=== PATIENT | female | born 1990 | race Caucasian/White ===

== ENCOUNTER 2025-03-13 14:07 | Emergency (ER) | payer MEDICAID, SELFPAY ==
[2025-03-13 14:07] VITALS: PULSE 90; RESP 22
[2025-03-13 14:31] VITALS: BP 116/67; PULSE 84; RESP 20; TEMP 37; O2SAT 100
--- NOTE | 2025-03-13 14:32 | XR_ITS ---
Examination: CT abdomen and pelvis without contrast. Coronal 3-D reconstructions. Sagittal 2-D reconstructions. Date and time of exam:March 13, 2025 1531 hours Comparison January 12, 2023 INDICATIONS: Epigastric pain abdominal pain vomiting and nausea beginning 3 days ago, history mild right hydronephrosis 3 mm distal right ureteral calculus on CT study January 12, 2023 CTDI: vol (mGy): 10.8 DLP: (mGycm): 612 Technique: Axial images of the abdomen have been obtained, 3 mm slice thickness Intravenous contrast material has not been administered. Low dose protocols were performed. One or more of the following dose reduction techniques were used; automated exposure control, adjustment of the mA and/or KV according to patient size, use of iterative reconstruction technique. Findings: No focal liver or splenic lesion Absent gallbladder No pancreatic or adrenal mass 1 mm nonobstructing left renal calculus 2. Tiny right renal calculi each 1 mm No ureteral calculi No bowel obstruction Normal appendix Enlarged fundus of uterus No adnexal mass No bladder mass or bladder calculi The osseous structures are intact IMPRESSION: Tiny bilateral nonobstructing renal calculi, no hydronephrosis or ureteral calculi Normal appendix No bladder mass or bladder calculi Enlarged fundus of uterus, consider pelvic sonography follow-up
--- NOTE | 2025-03-13 14:33 | PD.EDRME ---
Rapid Medical Screening Exam RME Arrival date/time: 03/13/25 14:07 34-year-old female presents emergency department due to complaint of abdominal pain Chief Complaint: Abdominal Pain Vital signs: Vital Signs Temperature 98.6 F 03/13/25 14:31 Pulse Rate 84 03/13/25 14:31 Respiratory Rate 20 03/13/25 14:31 Blood Pressure 116/67 03/13/25 14:31 Pulse Oximetry (%) 100 03/13/25 14:31 Oxygen Delivery Method Room Air 03/13/25 14:31
[2025-03-13] MEDS: ACETAMINOPHEN 500 MG TABLET 1000 MG PO (14:40)
[2025-03-13] MEDS: METOCLOPRAMIDE 5 MG TABLET 10 MG PO (14:40)
[2025-03-13 15:07] LABS: Collection Type, Urine Clean Catch
[2025-03-13 15:15] LABS: HCG Qualitative,Urine Negative
[2025-03-13 15:17] LABS: Bilirubin,Urine Negative (Negative); Blood,Urine 2+ (Negative); Clarity,Urine Clear (Clear/Hazy); Color,Urine Colorless (Lt Yel-Yel); Culture Indicated,Urine Not Indicated; Glucose, Urine Negative (Negative); Ketones,Urine Negative (Negative); Leukocyte Esterase,Urine Negative (Negative); Nitrite,Urine Negative (Negative); PH,Urine 6.5 (5.0-7.0); Protein,Urine Negative (Neg - Trace); RBC,Urine < 1 /hpf (0-3); Specific Gravity,Urine 1.005 (1.001-1.035); Squamous Epithelial Cell,Urine 2 /hpf (0-5); Urobilinogen,Urine Negative mg/dL (0.0-1.0); WBC,Urine < 1 /hpf (0-5)
[2025-03-13 15:27] LABS: Basophils % (Auto) 0 % (0-2.5); Eosinophils # (Auto) 0.1 Thou/mm3 (0.0-0.5); Eosinophils % (Auto) 1 % (0-10); Hematocrit 38.3 % (36.0-46.0); Hemoglobin 12.4 g/dL (12.0-16.0); Immature Granulocytes % (Auto) 0 % (0-0); Immature Granulocytes Auto 0.02 Thou/mm3 (0.00-0.00); Lymphocytes # (Auto) 1.4 Thou/mm3 (1.0-4.8); Lymphocytes % (Auto) 19 % (10-50); Mean Corpuscular HGB Conc 32.4 g/dl (31.0-37.0); Mean Corpuscular Hemoglobin 25.9 pg (25.0-35.0); Mean Corpuscular Volume 80 fL (80-100); Monocytes # (Auto) 0.7 Thou/mm3 (0.0-0.8); Monocytes % (Auto) 9 % (0-12); Neutrophils # (Auto) 5.1 Thou/mm3 (1.8-7.7); Neutrophils % (Auto) 71 % (37-80); Nucleated Red Blood Cell % 0 /100 WBC (0); Platelet Count 336 Thou/mm3 (140-440); RDW Standard Deviation 40.8 fL (36.4-46.3); Red Blood Count 4.79 Miln/mm3 (4.00-5.20); White Blood Count 7.2 Thou/mm3 (3.6-11.0)
[2025-03-13 15:39] LABS: Alanine Aminotransferase 19 U/L (10-49); Albumin, Serum 4.5 gm/dL (3.5-5.0); Alkaline Phosphatase 89 U/L (46-116); Anion Gap 9 (7-16); Aspartate Amino Transferase 22 U/L (0-34); BUN/Creatinine Ratio 9 Ratio (12-20); Bilirubin,Total 0.6 mg/dL (0.3-1.2); Blood Urea Nitrogen 7 mg/dL (9-23); Calcium 8.6 mg/dL (8.3-10.6); Calcium (Corrected) 8.6 mg/dL (8.5-10.1); Carbon Dioxide 24.6 mMol/L (20.0-31.0); Chloride 107 mMol/L (98-107); Creatinine (Component) 0.8 mg/dL (0.6-1.3); Globulin 2.2 gm/dL (2.3-3.5); Glucose 92 mg/dL (74-106); Lipase 32 U/L (12-53); Osmolality,Calculated 279 (275-295); Potassium 3.8 mMol/L (3.4-5.1); Sodium 141 mMol/L (136-145); Total Protein 6.7 gm/dL (5.7-8.2); eGFR > 60 See Note
--- NOTE | 2025-03-13 16:06 | PD.EDABDPN ---
ED Abdominal Pain RME/HPI General Chief Complaint: Abdominal Pain Stated complaint: left and right up ab pain x3 days Time seen by provider: 03/13/25 16:09 Arrival date/time: 03/13/25 14:07 34-year-old female presents to the emergency department today for complaint of upper abdominal pain ongoing for the last 3 days. Patient reports no fever. Patient reports no lower abdominal pain. Patient does report history of cholecystectomy Limitations: no limitations RME / HPI RME / HPI narrative: 03/13/25 14:07 34-year-old female presents emergency department due to complaint of abdominal pain Related Data Home Medications ?Medication ?Instructions ?Recorded ?Confirmed solifenacin 5 mg tablet (Vesicare) 5 mg PO QDAY 11/26/21 11/26/21 Previous Rx's ?Medication ?Instructions ?Recorded melatonin 5 mg capsule See Rx Instructions .Route 07/20/21 .COMPLEX #30 caps meclizine 25 mg tablet 25 mg PO TID PRN dizziness #14 tabs 09/04/22 ondansetron 8 mg disintegrating 8 mg PO Q12H PRN nausea and 01/14/23 tablet vomiting #7 tabs baclofen 5 mg tablet 5 mg PO BID PRN muscle spasm #20 08/20/23 tabs ibuprofen 800 mg tablet 800 mg PO TID PRN pain #30 tabs 12/09/23 ibuprofen 600 mg tablet 600 mg PO Q6H #30 tabs 05/05/24 ondansetron 4 mg disintegrating 4 mg PO Q8H PRN nausea and 05/05/24 tablet vomiting #10 tabs pantoprazole 40 mg tablet,delayed 40 mg PO QDAY #30 tabs 08/02/24 release (Protonix) famotidine 20 mg tablet (Pepcid) 20 mg PO BID 30 days #60 tabs 03/13/25 ondansetron 4 mg disintegrating 4 mg PO Q8H PRN nausea and 03/13/25 tablet vomiting #10 tabs Allergies Allergy/AdvReac Type Severity Reaction Status Date / Time sulfamethoxazole Allergy Severe THROAT Verified 03/13/25 14:11 SWELLING trimethoprim Allergy Severe THROAT Verified 03/13/25 14:11 SWELLING Review of Systems Review of Systems Systems Reviewed: All systems reviewed, normal except as documented Constitutional Constitutional: Reports system reviewed and no additional complaints, except as documented, Denies fever(s) and Denies headache(s) Eyes Eyes: Reports system reviewed and no additional complaints, except as documented and Denies blurry vision ENT Ears, Nose, Mouth, and Throat: Reports system reviewed and no additional complaints, except as documented, Denies headache(s), Denies nasal congestion and Denies nasal discharge Cardiovascular Cardiovascular: Reports system reviewed and no additional complaints, except as documented, Denies chest pain and Denies dyspnea Respiratory Respiratory: Reports system reviewed and no additional complaints, except as documented, Denies chest congestion, Denies cough and Denies dyspnea Gastrointestinal Gastrointestinal: Reports system reviewed and no additional complaints, except as documented, Reports abdominal pain, Reports diarrhea, Denies hematochezia, Reports loose stools and Reports nausea Integumentary/Breasts Skin/Breast: Reports system reviewed and no additional complaints, except as documented and Denies rash Neurologic Neurologic: Reports system reviewed and no additional complaints, except as documented, Reports as per HPI and Denies headache(s) Past Medical History Past Medical History CARDIAC: Negative Cardiac Disorders or Congestive Heart Failure RESPIRATORY: Negative Chronic Obstructive Pulmonary Disease (COPD) or Asthma GASTROINTESTINAL: Positive Ulcer and Gastroesophageal Reflux Disease GENITOURINARY: Negative Renal Disease REPRODUCTIVE: Positive Previous Pregnancies ENDOCRINE: Negative Diabetes Mellitus Type 1 or Diabetes Mellitus Type 2 HEMATOLOGIC: Negative Sickle Cell Disease Family History FAMILY HISTORY: Negative Family Neurologic Problems, Family Psychiatric Problems, Family Respiratory Disorders, Family Cardiac Disorders, Family Gastrointestinal Problems, Family Cancer, Family Surgery or Family Anesthesia Reaction Surgical History SURGICAL: Positive Tubal Ligation and Section Social History SMOKING STATUS: Never smoker SUBSTANCE USE: marijuana ED Exam General Limitations: Present no limitations General appearance: Present alert and in no apparent distress Head Head exam: Present atraumatic, normocephalic and normal inspection Eye Eye exam: Present normal appearance, PERRL and EOMI; Absent conjunctival injection ENT ENT exam: Present normal exam, normal oropharynx and mucous membranes moist Neck Neck exam: Present normal inspection, full ROM and trachea midline Chest Chest inspection: Present normal inspection and symmetric chest wall rise Respiratory Respiratory exam: Present normal lung sounds bilaterally; Absent respiratory distress Cardiovascular Cardiovascular exam: Present regular rate, normal rhythm and normal heart sounds Abdominal Exam Abdominal exam: Present soft, tenderness and normal bowel sounds; Absent distention, guarding, rebound, rigidity, Cartagena's sign or tenderness at McBurney's Point Abdominal tenderness: Present epigastrium and mild; Absent RUQ or RLQ Extremities Exam Extremities exam: Present normal inspection and full ROM Back Exam Back exam: Present normal inspection and full ROM Neurological Exam Neurological exam: Present alert, oriented X3 and CN II-XII intact Psychiatric Psychiatric exam: Present normal affect and normal mood Skin Skin exam: Present warm, dry, intact and normal color Course Quality Measures none Orders Category Date Time Status CT abdomen pelvis wo con Stat Exams 03/13/25 14:32 Completed CBC Stat Lab 03/13/25 15:05 Completed Comprehensive Metabolic Panel Stat Lab 03/13/25 15:05 Completed HCG Qualitative,Urine Stat Lab 03/13/25 14:59 Completed Lipase Stat Lab 03/13/25 15:05 Completed UA, C/S IF [Urinalysis, C/S if Indicated] Stat Lab 03/13/25 14:59 Completed Acetaminophen Tab [Tylenol ES Tab] Med 03/13/25 14:32 Discontinued 1,000 mg PO X1 ONE Metoclopramide [Reglan] Med 03/13/25 14:32 Discontinued 10 mg PO X1 ONE Vital Signs Vital signs: Vital Signs Temperature 98.6 F 03/13/25 14:31 Pulse Rate 84 03/13/25 14:31 Respiratory Rate 20 03/13/25 14:31 Blood Pressure 116/67 03/13/25 14:31 Pulse Oximetry (%) 100 03/13/25 14:31 Oxygen Delivery Method Room Air 03/13/25 14:31 O2 saturation 100% on room air within normal limits Abdominal Pain MDM MDM Narrative MDM Narrative:: 34-year-old female presents to the emergency department today for complaint of upper abdominal pain ongoing for the last 3 days. Patient reports no fever. Patient reports no lower abdominal pain. Patient does report history of cholecystectomy On exam patient well-appearing patient does not appear ill or toxic no acute distress Lab work as well as imaging obtained no acute emergent findings noted Patient medicated here Patient discharged home in no distress to follow-up with primary care doctor in the next 24 to 48 hours and for any worsening symptoms to return to the ER immediately Patient data External records reviewed:: [facility] previous records Clinical information provided by:: patient Social determinants that could affect healthcare access:: none Patient has the following chronic illnesses:: See history How is presenting disease/condition affected by chronic disease/condition?: caused by Evaluation data The following diagnostics were reviewed and interpreted by me:: lab results and radiology exam(s) Lab and/or radiology exams considered but not ordered:: Labs radiology obtain Interpretation Summary: Reviewed by me Medications / Prescriptions Medications or Prescriptions considered but not ordered:: Given Medication administrations:: Medication Administration History Discontinued Medications Acetaminophen (Acetaminophen 500 Mg Tablet) 1,000 mg PO X1 ONE Stop: 03/13/25 14:33 Last Admin: 03/13/25 14:40 Dose: 1,000 mg Documented By: Metoclopramide HCl (Metoclopramide 5 Mg Tablet) 10 mg PO X1 ONE Stop: 03/13/25 14:33 Last Admin: 03/13/25 14:40 Dose: 10 mg Documented By: Given Consultations Consultation(s) initiated? (list below): No Diagnosis Differential diagnosis abdominal pain: abdominal pain, acute appendicitis, pancreatitis and small bowel obstruction Most likely diagnosis given after review of the tests above:: Abdominal pain Admission Indicated Admission indicated?: not indicated Admission Request Was there a request for admission?: No Disposition Plan Disposition Plan: Discharge Discharge Attestation Discharge Attestation: The patient and all family members were given an opportunity to ask questions and understood the discharge instructions. Discharge instructions specifically effects, indications for sooner follow up or return to the emergency department, and the expected course of current diagnosis. Patient condition: Stable Discharge Plan Plan Patient Disposition: HOME (Self Care) Discharge Disposition comment: Stable Prescriptions/Referrals Prescriptions/Med Rec: New famotidine [Pepcid] 20 mg tablet 20 mg PO BID 30 Days Qty: 60 0RF ondansetron 4 mg tablet,disintegrating 4 mg PO Q8H PRN (Reason: nausea and vomiting) Qty: 10 0RF No Action solifenacin [Vesicare] 5 mg tablet 5 mg PO QDAY melatonin 5 mg capsule See Rx Instructions .ROUTE .COMPLEX Qty: 30 0RF Rx Instructions: 1 capsule 0 minutes before bed meclizine 25 mg tablet 25 mg PO TID PRN (Reason: dizziness) Qty: 14 0RF ondansetron 8 mg tablet,disintegrating 8 mg PO Q12H PRN (Reason: nausea and vomiting) Qty: 7 0RF pantoprazole [Protonix] 40 mg tablet,delayed release (DR/EC) 40 mg PO QDAY Qty: 30 0RF baclofen 5 mg tablet 5 mg PO BID PRN (Reason: muscle spasm) Qty: 20 0RF ibuprofen 800 mg tablet 800 mg PO TID PRN (Reason: pain) Qty: 30 0RF ibuprofen 600 mg tablet 600 mg PO Q6H Qty: 30 0RF ondansetron 4 mg tablet,disintegrating 4 mg PO Q8H PRN (Reason: nausea and vomiting) Qty: 10 0RF Referrals: Liang Hernandez MD [Primary Care Provider] - In 1 week Problem List Clinical Impression: Abdominal pain Patient/Caregiver Discharge Instructions Education Materials: Abdominal Pain Additional Instructions: Please follow up with your primary care doctor in the next 24-48hrs for any worsening symptoms return here immediately Print Language: Latvian Stand Alone Forms: Marya Award Info., Work/School Release, Patient Portal Info Letter PA/MARLA Supervising Physician JACKIE/MARLA Supervising Physician: Dr eDcker
== END 2025-03-13 16:24 | disposition home or self-care (01) ==
PROVIDERS: Nurse Practitioner Primary Care; Emergency Provider Emergency Medicine; PCP Student in an Organized Health Care Education/Training Program
DX: R10.10 Upper abdominal pain, unspecified (principal)
CPT/HCPCS: 36415; 74176; 80053; 81001; 81025; 83690; 85025; 99284; A9270

== ENCOUNTER 2025-05-13 21:36 | Emergency (ER) | payer MEDICAID, SELFPAY ==
[2025-05-13 21:39] VITALS: BMI 38.0
[2025-05-13 21:55] VITALS: BP 125/67; PULSE 106; RESP 19; TEMP 36.8; O2SAT 100
--- NOTE | 2025-05-13 22:45 | PD.EDSKIN ---
ED Skin Abcess FB-RME/HPI General Chief complaint: General Adult/Misc Complain Stated complaint: 8 YO C SECTION AREA RED AND OPENING Time Seen by Provider: 05/13/25 22:46 Arrival date/time: 05/13/25 21:36 RME / HPI RME / HPI narrative: This section includes all my notes and documentations, including HPI, PE, and ED course. Jc Holder MD HPI: 34yo female here with redness to her lower abdomen since yesterday. Patient has been working out more frequently. No other complaints. ROS: All negative except as documented in HPI. Physical Exam: General: Alert and oriented. No acute distress when remaining still. Eyes: Conjunctivae and lids clear. ENT: No nasal congestion. Neck: Supple. Lungs: No respiratory distress. Abdomen: Soft and nontender. Normal bowel sounds. No distension. No rebound or guarding. Skin: Warm and dry. In the lower abdomen, there is horizontal erythematous rash (2 x 20 cm) with classic satellite lesions. Neuro: Alert and oriented X 3. At this point, diagnoses include fungal skin infection. Recommended diagnostic tests to make sure there is no serious intra-abdominal condition, including CT scan and blood tests. Patient declined. Discussed potential risks, including missing serious condition. Patient understood but still declined. We couldn't change her mind. Prescribed antifungal medications and recommended outpatient follow-up. Based on my best medical judgment, made decision no further evaluation or treatment indicated at this time. Patient understands and agrees to the discharge instructions customized and printed, see below. Discharge Instructions from Dr. Holder printed for you: 1. Because you declined all diagnostic tests, including CT scan and blood tests, we did not perform any tests today. 2. For your fungal skin infection in your lower abdominal area, apply Lotrisone cream and take Diflucan as prescribed. Keep the area clean and dry. Fungal germs grow in dark and moist areas. 3. See a private doctor on 05/14/2025 for recheck. 4. Seek immediate medical care with worsening or with any concerns. Jc Holder MD Related Data Home Medications ?Medication ?Instructions ?Recorded ?Confirmed solifenacin 5 mg tablet (Vesicare) 5 mg PO QDAY 11/26/21 11/26/21 Previous Rx's ?Medication ?Instructions ?Recorded melatonin 5 mg capsule See Rx Instructions .Route 07/20/21 .COMPLEX #30 caps meclizine 25 mg tablet 25 mg PO TID PRN dizziness #14 tabs 09/04/22 ondansetron 8 mg disintegrating 8 mg PO Q12H PRN nausea and 01/14/23 tablet vomiting #7 tabs baclofen 5 mg tablet 5 mg PO BID PRN muscle spasm #20 08/20/23 tabs ibuprofen 800 mg tablet 800 mg PO TID PRN pain #30 tabs 12/09/23 ibuprofen 600 mg tablet 600 mg PO Q6H #30 tabs 05/05/24 ondansetron 4 mg disintegrating 4 mg PO Q8H PRN nausea and 05/05/24 tablet vomiting #10 tabs pantoprazole 40 mg tablet,delayed 40 mg PO QDAY #30 tabs 08/02/24 release (Protonix) ondansetron 4 mg disintegrating 4 mg PO Q8H PRN nausea and 03/13/25 tablet vomiting #10 tabs acetaminophen 300 mg-codeine 30 mg 2 tab PO Q8H PRN pain #10 tabs 05/13/25 tablet clotrimazole-betamethasone 1 1 applic topical BID 7 days #45 05/13/25 %-0.05 % topical cream grams fluconazole 100 mg tablet 100 mg PO QDAY #7 tabs 05/13/25 (Diflucan) Allergies Allergy/AdvReac Type Severity Reaction Status Date / Time sulfamethoxazole Allergy Severe THROAT Verified 05/13/25 21:46 SWELLING trimethoprim Allergy Severe THROAT Verified 05/13/25 21:46 SWELLING Review of Systems Review of Systems Systems Reviewed: All systems reviewed, normal except as documented Past Medical History Past Medical History CARDIAC: Negative Cardiac Disorders or Congestive Heart Failure RESPIRATORY: Negative Chronic Obstructive Pulmonary Disease (COPD) or Asthma GASTROINTESTINAL: Positive Ulcer and Gastroesophageal Reflux Disease GENITOURINARY: Negative Renal Disease REPRODUCTIVE: Positive Previous Pregnancies ENDOCRINE: Negative Diabetes Mellitus Type 1 or Diabetes Mellitus Type 2 HEMATOLOGIC: Negative Sickle Cell Disease Family History FAMILY HISTORY: Negative Family Neurologic Problems, Family Psychiatric Problems, Family Respiratory Disorders, Family Cardiac Disorders, Family Gastrointestinal Problems, Family Cancer, Family Surgery or Family Anesthesia Reaction Surgical History SURGICAL: Positive Tubal Ligation and Section Social History SMOKING STATUS: Never smoker SUBSTANCE USE: marijuana ED Exam Narrative Physical exam: As noted in HPI. Course Quality Measures none Vital Signs Vital signs: Vital Signs Temperature 98.3 F 05/13/25 21:55 Pulse Rate 106 H 05/13/25 21:55 Respiratory Rate 19 05/13/25 21:55 Blood Pressure 125/67 05/13/25 21:55 Pulse Oximetry (%) 100 05/13/25 21:55 Oxygen Delivery Method Room Air 05/13/25 21:55 Skin / Abscess / Foreign Body MDM Narrative MDM Narrative:: 34yo female here with redness to her lower abdomen since yesterday. Patient has been working out more frequently. No other complaints. Patient data External records reviewed:: [facility] previous records (Per chart review, patient was seen here on 03/13/25 for abdominal pain.) Clinical information provided by:: patient Social determinants that could affect healthcare access:: none Patient has the following chronic illnesses:: none How is presenting disease/condition affected by chronic disease/condition?: no chronic disease Evaluation data The following diagnostics were reviewed and interpreted by me:: other (specify) (none) Lab and/or radiology exams considered but not ordered:: CT abdomen pelvis and labs considered, but the patient did not want any tests performed. Interpretation Summary: Recommended diagnostic tests to make sure there is no serious intra-abdominal condition, including CT scan and blood tests. Patient declined. Discussed potential risks, including missing serious condition. Patient understood but still declined. We couldn't change her mind. Medications / Prescriptions Medications or Prescriptions considered but not ordered:: none Medication administrations:: none Consultations Consultation(s) initiated? (list below): No Diagnosis Skin/Abscess Differential Diagnosis: abscess of skin or subcutaneous tissue, cellulitis, contact dermatitis and other (skin infection) Most likely diagnosis given after review of the tests above:: Fungal skin infection Admission Indicated Admission indicated?: not indicated Explain why admission is indicated or not indicated:: With no condition needing emergent intervention, there was no indication for admission. Admission Request Was there a request for admission?: No Disposition Plan Disposition Plan: Discharge Discharge Attestation Discharge Attestation: The patient and all family members were given an opportunity to ask questions and understood the discharge instructions. Discharge instructions specifically effects, indications for sooner follow up or return to the emergency department, and the expected course of current diagnosis. Patient condition: Stable Discharge Plan Plan Patient Disposition: HOME (Self Care) Prescriptions/Referrals Prescriptions/Med Rec: New clotrimazole-betamethasone 1-0.05 % cream 1 applic topical BID 7 Days Qty: 45 0RF fluconazole [Diflucan] 100 mg tablet 100 mg PO QDAY Qty: 7 0RF acetaminophen-codeine 300-30 mg tablet 2 tab PO Q8H MDD 6 PRN (Reason: pain) Qty: 10 0RF No Action solifenacin [Vesicare] 5 mg tablet 5 mg PO QDAY melatonin 5 mg capsule See Rx Instructions .ROUTE .COMPLEX Qty: 30 0RF Rx Instructions: 1 capsule 0 minutes before bed meclizine 25 mg tablet 25 mg PO TID PRN (Reason: dizziness) Qty: 14 0RF ondansetron 8 mg tablet,disintegrating 8 mg PO Q12H PRN (Reason: nausea and vomiting) Qty: 7 0RF pantoprazole [Protonix] 40 mg tablet,delayed release (DR/EC) 40 mg PO QDAY Qty: 30 0RF ondansetron 4 mg tablet,disintegrating 4 mg PO Q8H PRN (Reason: nausea and vomiting) Qty: 10 0RF baclofen 5 mg tablet 5 mg PO BID PRN (Reason: muscle spasm) Qty: 20 0RF ibuprofen 800 mg tablet 800 mg PO TID PRN (Reason: pain) Qty: 30 0RF ibuprofen 600 mg tablet 600 mg PO Q6H Qty: 30 0RF ondansetron 4 mg tablet,disintegrating 4 mg PO Q8H PRN (Reason: nausea and vomiting) Qty: 10 0RF Problem List Clinical Impression: Fungal skin infection Patient/Caregiver Discharge Instructions Discharge Activity: activity as tolerated Education Materials: ED Fungal Skin Infection (Tinea) Additional Instructions: Discharge Instructions from Dr. Holder printed for you: 1. Because you declined all diagnostic tests, including CT scan and blood tests, we did not perform any tests today. 2. For your fungal skin infection in your lower abdominal area, apply Lotrisone cream and take Diflucan as prescribed. Keep the area clean and dry. Fungal germs grow in dark and moist areas. 3. See a private doctor on 05/14/2025 for recheck. 4. Seek immediate medical care with worsening or with any concerns. Print Language: [place] Stand Alone Forms: Marya Award Info., Patient Portal Info Letter
== END 2025-05-13 22:55 | disposition home or self-care (01) ==
LOC: SERX 23:07
PROVIDERS: Emergency Provider Emergency Medicine
DX: B36.9 Superficial mycosis, unspecified (principal)
CPT/HCPCS: 99282